=== PATIENT | male | born 1945 | race Caucasian/White ===

== ENCOUNTER 2025-04-15 09:11 | Inpatient (IN) | payer OTHER, MEDICARE ==
[~2025-04-15] VITALS: Ht 172.7 cm; Wt 60.0 kg
--- NOTE | 2025-04-15 09:21 | ELECTROCARDIOGRAPH REPORT ---
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
[2025-04-15 09:30] LABS: MEAN PLATELET VOLUME 8.5 FL (7.4-10.4); RED CELL DISTRIBUTION WIDTH 13.6 % (11.5-14.5)
[2025-04-15 09:44] LABS: CREATININE 2.39 MG/DL (0.60-1.10); TOTAL CARBON DIOXIDE 21.3 MMOL/L (24-32); eCRCL 22 ML/MIN; eGFR 27 ML/MIN
--- NOTE | 2025-04-15 09:50 | RADIOLOGY REPORT ---
CHEST RADIOGRAPH Indication: CP Technique: Single frontal view of the chest was obtained COMPARISON: None FINDINGS: Lines and Tubes: None Lungs: Right upper lobe pneumonia Pleura: No effusion. No pneumothorax. Cardiomediastinal contours: Unremarkable Bones: Unremarkable IMPRESSION: Right upper lobe pneumonia
[2025-04-15 09:52] LABS: PRO BRAIN NATRIURETIC PEPTIDE 2750 PG/ML (0-450)
[2025-04-15] MEDS: normal saline 1000ml 1,000 ML IV ONE ×2 (10:31→12:16)
[2025-04-15 10:44] LABS: BANDS% (MANUAL) 9.0 % (0-10); LYMPHOCYTES % (MANUAL) 2.0 % (21-51); METAMYLEOCYTES% (MANUAL) 1.0 % (0-0); MONOCYTES % (MANUAL) 5.0 % (2-12); NEUTROPHILS % (MANUAL) 83.0 % (42-75); PLATELET ESTIMATE NORMAL
--- NOTE | 2025-04-15 11:02 | Physician Documentation ---
History of Present Illness ~ Chief Complaint: Chest Pain Stated Complaint: LOW BLOOD PRESSURE Time Seen by MD: 09:35 Primary Medical Doctor: MATTHEW TUBBS This is a 79-year-old gentleman with a known history of hypothyroidism and hypotension who presents for evaluation of chest pain, shortness a breath, and low blood pressure this morning. It all started out with him taking his usual lisinopril, and shortly afterwards noticing that he is seeing spots. He took his blood pressure and noted it to be markedly hypotensive. He came to the hospital for further evaluation. No palliating or aggravating factors for low blood pressure. He has been taking his medication as prescribed. He also reports bilateral chest pain, worse with a respiration of the right side that has been present for the last couple of days without any fever or chills. Does report productive cough with a clear sputum that eventually turn yellow on the brown. He does report shortness a breath for the last couple of days. No palliating or aggravating factors for chest pain. Never had a cardiac workup. Denies any history of ACS or congestive heart failure. Quit smoking four days ago. Denies drug use or alcohol use. Medication Reconciliation Allergies: Coded Allergies: No Known Allergies (Unverified , 12/18/11) Past Medical History Past Surgical History: noncontributory Alcohol Use: Heavy Drug Use: none Review of Systems ROS 10 point review of systems was performed and unless noted above in HPI is negative for acute process/complaint. Physical Exam Vital Signs: Temperature: 98.0, Heart Rate: 81, Respiratory Rate: 18, BP: 73/43, Pulse Oximetry: 97, Weight: 60.000 Oxygen Flow Rate: 0 Physical Exam GENERAL: Awake, alert, oriented, GCS 15, no apparent distress, non-toxic appearing, answers questions, follows commands appropriately. HEENT: Atraumatic, normocephalic, pupils equal, extraocular muscles intact, sclerae anicteric, mucus membranes moist, oropharynx is clear, no stridor. NECK: supple, full active range of motion, trachea midline, no thyromegaly, no lymphadenopathy, no JVD. CARDIOVASCULAR: regular rate/rhythm, no murmurs/gallops/rubs, Pulses are 2+ in all extremities and symmetric. Capillary refill less than 2 seconds. PULMONARY: Nonlabored, good air movement ,no respiratory distress, speaking in full sentences, no wheezing, right-sided ronchi, no rales, no accessory muscle use. GASTROINTESTINAL: Soft, non-tender, non-distended, normal active bowel sounds, no organomegaly, no pulsatile masses, no CVA tenderness. NEUROLOGIC: Lucid with normal mental status. Normal facial symmetry. Moves all extremities symmetrically and with purpose. No truncal ataxia. Speech is fluid without evidence of dysarthria or aphasia, no focal deficits appreciated. MUSCULOSKELETAL: There is full range of motion of all extremities. There is no joint pain or joint swelling or joint erythema. There is no muscle pain or tenderness or swelling. EXTREMITIES: warm, well-perfused, no cyanosis, no clubbing, no edema, no acute deformities. Skin: warm, dry, no rashes or lesions, no jaundice, no petechiae orpurpura. No ecchymosis. PSYCHIATRIC: Normal affect, normal insight, normal concentration. Focused exam: [] Progress Results/Orders Results/Orders Orders - DION SHAH DO Chest,Single View (04/15/25 09:14) Monitor (04/15/25 09:14) Saline Lock (04/15/25 09:14) Oxygen (04/15/25 09:14) Hs Troponin I W Calculations (04/15/25 11:14) Hs Troponin I W Calculations (04/15/25 12:14) Normal Saline 1000ml (0.9% Sodium Chlori (04/15/25 10:30) Completed Orders - DION SHAH DO Chest,Single View (04/15/25 09:14) Cbc/Diff (04/15/25 09:14) PBNP (04/15/25 09:14) Electrocardiogram (04/15/25 09:14) Hs Troponin I W Calculations (04/15/25 09:14) CMP (04/15/25 09:14) Man Diff (04/15/25 09:19) Medications Received in ER Medications (Trade) Dose Ordered Sig/Fermín Route PRN Reason Start Time Stop Time Status Last Admin Dose Admin Sodium Chloride 1,000 ml @ 1,000 mls/hr ONCE ONCE IV 04/15/25 10:30 04/15/25 11:29 04/15/25 10:31 1,000 MLS/HR Vital Signs 04/15/25 04/15/25 04/15/25 09:21 09:56 10:20 Temp 98.0 Pulse 89 81 Resp 18 18 B/P (MAP) 102/50 73/43 (53) Pulse Ox 97 97 O2 Flow Rate 0 Laboratory Tests Test 04/15/25 09:19 White Blood Count 14.9 H Red Blood Count 4.02 L Hemoglobin 13.3 L Hematocrit 39.3 L Mean Corpuscular Volume 97.8 Mean Corpuscular Hemoglobin 33.1 H Mean Corpuscular Hemoglobin Concent 33.9 Red Cell Distribution Width 13.6 Platelet Count 156 Mean Platelet Volume 8.5 Neutrophils (%) (Auto) 91.1 H Lymphocytes (%) (Auto) 3.8 L Monocytes (%) (Auto) 4.8 Eosinophils (%) (Auto) 0.1 Basophils (%) (Auto) 0.2 Neutrophils # (Auto) 13.6 H Lymphocytes # (Auto) 0.6 L Monocytes # (Auto) 0.7 Eosinophils # (Auto) 0.0 Basophils # (Auto) 0.0 CBC Comment Differential Total Cells Counted 100 Neutrophils % (Manual) 83.0 H Band Neutrophils % 9.0 Lymphocytes % (Manual) 2.0 L Monocytes % (Manual) 5.0 Metamyelocytes % 1.0 H Platelet Estimate Normal Red Blood Cell Morphology Perf Basophilic Stippling Macrocytosis 1+ Sodium Level 133 L Potassium Level 4.3 Chloride Level 98 L Carbon Dioxide Level 21.3 L Anion Gap 14 Blood Urea Nitrogen 48 H Creatinine 2.39 H Estimated GFR/1.73 m2 27 BUN/Creatinine Ratio 20.1 H Glucose Level 117 H Calcium Level 9.4 Total Bilirubin 0.9 Aspartate Amino Transf (AST/SGOT) 13 Alanine Aminotransferase (ALT/SGPT) 27 Alkaline Phosphatase 69 Troponin I High Sensitivity 4 Pro-B-Type Natriuretic Peptide 2750 H Total Protein 7.6 Albumin 3.0 L Globulin 4.6 H Albumin/Globulin Ratio 0.7 L Chemistry Comments Medical Decision Making Findings Facility Status: ED Holds, [facility] process The plan was discussed with the patient, who demonstrates clear understanding of the plan and is in agreement with the plan unless otherwise noted in the chart. All questions have been answered, all concerns were addressed unless otherwise documented. I was available throughout their ED stay for frequent reassessment and questions. Differential Diagnoses (considered and possible or likely): [Differential diagnosis considered includes chest wall pain, pleurisy, pneumonia, pulmonary embolus, GERD, esophagitis, gastritis, anxiety, stress reaction, costochondritis, acute coronary syndrome, aortic dissection, pericarditis, myocarditis, or pneumothorax.] ??Differential Diagnoses (considered and unlikely, not requiring evaluation currently): [Aortic/great vessels dissection was considered but it is unlikely based on absence of ripping, tearing, migratory chest pain, absence of syncope or focal neurologic deficits, physical examination indicating equal and symmetric pulses.] MDM Data [facility] see [facility] for the following: Independent Historians and external Records Review. Historian: [Patient] Independent Historians: ?[] Medication Management: [Reviewed medication list] Social History and determinants: [Reviewed] Please see the body of the note for the following: Any independent interpretations of ECG, imaging studies. All vitals signs/haemodynamics, ordered tests were independently reviewed and interpreted by myself. Nursing triage complaint and vitals reviewed, additional nursing notes were reviewed as available and I agree unless otherwise noted or documented in contradiction in the chart Vital Signs: Independently reviewed Labs: Independently interpreted Imaging: Independently interpreted Old Medical Records: Independently reviewed, see [facility] for relevant summary and information Pulse Oximetry: [90% on room air] interpreted as [borderline hypoxia] by me [Toll Bridge Operator: [Regular Rate, Regular rhythm, no ectopy, NSR] reviewed and interpreted by me] Additionally notably showing: [The gentleman has transient episode of hypotension responsive to fluid. Borderline hypoxia noted. CBC shows leukocytosis with a 90% neutrophilic predominance. Chest x-ray shows right- sided pneumonia. BNP is also elevated concerning for new onset congestive heart failure. Metabolic panel notable for MARGARITA] Tests considered but not ordered include: [Advanced imaging of the chest, echo, and stress test can be done on an inpatient basis] Social Determinants of Health Impact: Patient was evaluated in [facility], or [facility] [place] access to healthcare due to below par ratio of patient to medical providers. [] Comorbid Conditions Impacting Present Evaluation and Care/Treatment: [Hypotension, hypothyroidism] Management Discussions with other Healthcare Providers: [Hospitalist] Treatment and Disposition Medication Management (Given or considered): [Gentle fluid resuscitation, antibiotics]. See EMR for details Consideration for Hospitalization/Escalation/Deescalation of Care: Admission for observation has been considered, and appears to be necessary for further management of his transient hypotension, acute kidney injury, community-acquired pneumonia, and concern for new onset CHF ?ED Course:?[Responded to fluids, hypotension resolved.] ?Shared decision making:?[] Code status:?FULL Please see the full Electronic Medical Record for full details of nursing documentation, medications list, other records of complete past medical history and conditions, vital signs, laboratory studies, and any radiologic study interpretations by radiologists. Portions of this note were completed using Visual Unity dictation software and as a result there may exist minor errors in spelling. I have reviewed elements of past family and social history and agree as included in note. Departure Disposition: 09 ADMITTED INPATIENT Impression: Primary Impression: Transient hypotension Additional Impressions: Acute kidney injury New onset of congestive heart failure Acute chest pain Community acquired pneumonia Bandemia Sepsis Acute hypoxic respiratory failure Condition: Guarded Referrals: NO PRIMARY CARE PROVIDER (PCP) Signature Scribe Signature: No scribe Attestation: This note accurately reflects clinical decisions, work performed by myself, DO PABLO Damon NICHOLAS M DO Apr 15, 2025 11:02
[2025-04-15] MEDS: azithromycin/NS 500mg/250ml 250 ML IV ONE (11:15)
[2025-04-15] MEDS ORDERED: magnesium hydroxide 30ml (MOM) UD suspension PO PRN (11:25)
[2025-04-15] MEDS ORDERED: potassium Cl 20 mEq SR tablet PO PRN ×2 (11:25)
[2025-04-15] MEDS ORDERED: magnesium sulf-water 2g/50mL 50 ML IV PRN (11:25)
[2025-04-15] MEDS: PERFLUTREN PROTEIN-A MICROSPHR (Optison) 0.22 MG/ML 3ML VIAL IV ONE (11:25)
[2025-04-15] MEDS ORDERED: magnesium sulf-water 4G/100mL 100 ML IV PRN (11:25)
[2025-04-15] MEDS ORDERED: ondansetron/PF 4mg/2ml inj IV PRN (11:25)
[2025-04-15] MEDS ORDERED: mag hydrox/Alum hydrox/simeth 30ml oral suspension PO PRN (11:25)
[2025-04-15] MEDS ORDERED: potassium Cl 40MEQ/1/2NS 520ml 520 ML IV PRN (11:25)
[2025-04-15] MEDS ORDERED: albuterol 2.5 MG/3 ML nebule NEB PRN ×2 (11:30→16:55)
[2025-04-15] MEDS: CefTRIAXone 2gm/NS 100ml IVPB 50 ML IV ONE (12:04)
[2025-04-15] MEDS: normal saline 1000ml 1,000 ML IV SCH (12:40)
[2025-04-15] MEDS: midodrine 5mg tablet PO ONE (12:40)
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
[2025-04-15] MEDS ORDERED: haloperidol lactate 5mg/ml inj IM PRN (12:50)
[2025-04-15] MEDS: normal saline 1000ml 1,000 ML IV STA (12:52)
[2025-04-15 14:05] LABS: CHOL/HDL RATIO 3.1 (0.00-4.99); LDL CHOLESTEROL 29 MG/DL (50-100)
[2025-04-15 14:19] VITALS: PULSE 76; RESP 16; O2SAT 96
--- NOTE | 2025-04-15 14:48 | RADIOLOGY REPORT ---
Procedure: CT CT CHEST Reason for study/Clinical History: pna Comparison Study: None TECHNIQUE: Multidetector CT of the chest was performed from the lung apices to the upper abdomen with out the use of intravenous contract. Axial, coronal and sagittal multiplanar reformats were performed . Radiation Dose Information: CT Dose: CTDI volume is 10.4 mGy. Dose-length product is 412.8 mGy*cm The dose indicators for CT are the volume Computed Tomography (CT) Dose Index (CTDIvol) and the Dose Length Product (DLP), and are measured in units of mGy and mGy-cm, respectively. These indicators are not patient dose, but values generated from the CT scanner acquisition factors. The report includes radiation exposure data for exposures received during this examination. FINDINGS: Lower neck: Unremarkable. Lungs: Moderate emphysema. Biapical scarring, [id number]. Airspace consolidation in the right upper lobe and right middle lobe. Heart/Vascular Structures: Cardiomegaly. Coronary artery calcifications. Vascular calcifications of t he aorta. Lymph Nodes: No adenopathy Pleura: No pleural effusion or significant pneumothorax. Musculoskeletal: No acute osseous abnormality. Soft tissues: Normal. Upper abdomen: Limited portions of the upper abdomen are unremarkable. IMPRESSION: Airspace consolidation in the right upper lobe and right middle lobe superimposed on moderate emphyse ma.
[2025-04-15 15:00] VITALS: BP 103/54; PULSE 61; RESP 16; TEMP 97.3; O2SAT 95
[2025-04-15] MEDS: midodrine 5mg tablet PO SCH (16:10)
[2025-04-15 18:00] VITALS: BP 133/82; PULSE 91; RESP 14; TEMP 98.2; O2SAT 95
[2025-04-15] MEDS: docusate sod 100mg capsule PO SCH (19:43)
[2025-04-15] MEDS: heparin, porcine 5000 units/ml vial SQ SCH (19:44)
[2025-04-15 20:00] VITALS: RESP 18; O2SAT 97
[2025-04-15] MEDS: K and/or MAG REPLACEMENT MC SCH (20:00)
[2025-04-15 22:00] VITALS: BP 120/54; PULSE 58; RESP 11; TEMP 98; O2SAT 99
[2025-04-16] VITALS (10 sets, daily range): BP systolic 81–128; BP diastolic 50–106; PULSE 58–86; RESP 12–26; TEMP 97–98.2; O2SAT 92–100
[2025-04-16 06:14] LABS: MEAN PLATELET VOLUME 9.0 FL (7.4-10.4); RED CELL DISTRIBUTION WIDTH 13.4 % (11.5-14.5)
[2025-04-16 06:31] LABS: CREATININE 1.80 MG/DL (0.60-1.10); TOTAL CARBON DIOXIDE 18.7 MMOL/L (24-32); eCRCL 29 ML/MIN; eGFR 37 ML/MIN
[2025-04-16] MEDS: azithromycin/NS 500mg/250ml 250 ML IV SCH (07:55)
[2025-04-16] MEDS: CefTRIAXone 2gm/D5W 50ml BAG 50 ML IV SCH (07:55)
[2025-04-16] MEDS: normal saline 1000ml 1,000 ML IV ONE (10:15)
--- NOTE | 2025-04-16 10:18 | PROGRESS NOTE ---
Daily Progress Note Providers to CC ~ Antibiotic Timeout Antibiotic Ordered?: Yes Subjective No acute events overnight. Patient examined at bedside. No new complaints, not in acute distress. Patient denies chest pain, sob, palpitations, abdominal pain, n/v/d. Vss, tele sinus in 60s, labs notable for normalized white count and normalized lactic acid, resolving MARGARITA on IVF. 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, no focal deficits Musculoskeletal: No paraspinal muscle tenderness, no muscle spasm Skin: Warm and intact Problem\Assessment\Plan Assessment Sepsis 2/2 PNA Community-acquired pneumonia Hypotension Dehydration Hyponatremia, mild likely 2/2 ACEI use Prerenal MARGARITA 2/2 hypovolemia/vasomotor nephropathy Hx hypertension Hypothyroidism Chronic alcoholism Empyesema -reports pleuritic chest pain, wbc 15, procal 8.5, lactic acid 3.5, trops negative, HEART score 3, CXR shows pneumonia, EKG sinus 89bpm, no ST elevation/depression, CT chest shows consolidation in the right upper lobe and right middle lobe superimposed on moderate emphysema -04/16: normalized white count, normalized lactic acid, downtrending Cr Plan -fluid resuscitation, midodrine, ceftriaxone, Zithromax, mild alcohol withdrawal protocol, prn bronchodilators -follow UA, TTE, repeat lactic acid -pending med rec DVT/VTE prophylaxis: Heparin Code status: Full code Date of Service: Apr 16, 2025 Billing Provider: KELVIN CERVANTES Common Visit Codes: [id number] INP/OBS CARE(HIGH) KELVIN CERVANTES Apr 16, 2025 10:18
[2025-04-16] MEDS ORDERED: ALB0.5UD NEB (12:19)
[2025-04-16] MEDS ORDERED: LISI20TA28 PO (12:19)
[2025-04-16] MEDS ORDERED: SYN0.088T PO (12:19)
[2025-04-16 15:24] LABS: LEUKOCYTE ESTERASE ,URINE NEGATIVE (Neg); NITRITES, URINE NEGATIVE (Neg); OCCULT BLOOD,URINE SMALL (Neg)
[2025-04-16 15:29] LABS: UA COLLECTION TYPE NON-SPECIFIED
[2025-04-16 15:34] LABS: COARSE GRANULAR CAST 0-3 /LPF (NEGATIVE); SQUAMOUS EPITHELIAL CELL,UR FEW /LPF (FEW)
[2025-04-16] MEDS: lactose-reduced food (Ensure Enlive) - 237ml bottle PO SCH (18:10)
[2025-04-16] MEDS: HYDROcodone/acetaminophen 5mg/325mg tablet PO PRN (20:19)
[2025-04-17] VITALS (13 sets, daily range): BP systolic 109–145; BP diastolic 54–92; PULSE 63–83; RESP 12–24; TEMP 97.5–97.8; O2SAT 92–97
[2025-04-17 07:06] LABS: MEAN PLATELET VOLUME 9.2 FL (7.4-10.4); RED CELL DISTRIBUTION WIDTH 13.7 % (11.5-14.5)
[2025-04-17 07:18] LABS: CREATININE 1.41 MG/DL (0.60-1.10); TOTAL CARBON DIOXIDE 18.6 MMOL/L (24-32); eCRCL 37 ML/MIN; eGFR 49 ML/MIN
[2025-04-17] MEDS: HYDROcodone/acetaminophen 10/325mg tab PO PRN (10:40)
--- NOTE | 2025-04-17 14:28 | PROGRESS NOTE ---
Daily Progress Note Providers to CC ~ Antibiotic Timeout Antibiotic Ordered?: Yes Subjective No acute events overnight. Patient examined at bedside. No new complaints, not in acute distress. Patient denies chest pain, sob, palpitations, abdominal pain, n/v/d. Vss, tele sinus in 70s, labs notable for normalized white count and normalized lactic acid, resolving MARGARITA on IVF. 10/09 preliminary blood cx resulted for Strep pneumoniae, TTE 55-60%, RVSP 40mmHg without significant valvular heart disease, no emboli. Consulted ID Dr. Dyer. Objective Vital Signs Date Time Temp Pulse Resp B/P (MAP) Pulse Ox O2 Delivery O2 Flow Rate FiO2 04/17/25 11:41 75 20 94 Room Air* 0 21 04/17/25 11:00 97.5 125/67 (86) Result Diagram: 04/17/2561304/17/25613 Physical Exam General: Generalized weakness, A&Ox 3, NAD HEENT: Normocephalic, PERRLA Neck: Supple, trachea midline, no JVD Chest: Clear to auscultation bilaterally Cardiovascular: RRR, S1&S2 GI: Soft and nontender Extremities: No cyanosis/clubbing/or edema ENTRY MANAGER: CN II-XII intact, no focal deficits Musculoskeletal: No paraspinal muscle tenderness, no muscle spasm Skin: Warm and intact Problem\Assessment\Plan Assessment Sepsis 2/2 PNA Community-acquired pneumonia Bacteremia-POA Hypotension Dehydration Hyponatremia, mild likely 2/2 ACEI use Prerenal MARGARITA 2/2 hypovolemia/vasomotor nephropathy Hx hypertension Hypothyroidism Chronic alcoholism Empyesema -reports pleuritic chest pain, wbc 15, procal 8.5, lactic acid 3.5, trops negative, HEART score 3, CXR shows pneumonia, EKG sinus 89bpm, no ST elevation/depression, CT chest shows consolidation in the right upper lobe and right middle lobe superimposed on moderate emphysema -04/16: normalized white count, normalized lactic acid, downtrending Cr, TTE 55- 60%, RVSP 40mmHg without significant valvular heart disease -04/17: 10/09 preliminary blood cx resulted for Strep pneumoniae, consulted ID Dr. Dyer Plan -fluid resuscitation, midodrine, ceftriaxone, Zithromax, mild alcohol withdrawal protocol, prn bronchodilators DVT/VTE prophylaxis: Heparin Code status: Full code Date of Service: Apr 17, 2025 Billing Provider: KELVIN CERVANTES Common Visit Codes: [id number] INP/OBS CARE(HIGH) KELVIN CERVANTES Apr 17, 2025 14:28
--- NOTE | 2025-04-17 16:40 | CARDIOLOGY REPORT ---
APPROVED REPORT EXAM: Comprehensive 2D, Doppler, and color-flow Echocardiogram. Patient Location: [facility] [place] Blood Pressure: 94/53 mmHg Heart Rate: 107-120 bpm Indications Chest Pain PROBNP: 2750 Shortness of Breath NO MANAGER SCIENCE NO Previous ECHO 2D Dimensions LA Diam3.8 cm IVSd 0.9 (0.7-1.1cm) LVDd 3.8 cm PWd 0.8 (0.7-1.1cm) IVSs 1.0 (0.8-1.2cm) LVDs 2.7 (2.5-4.0cm) PWs 1.3 (0.8-1.2cm) LVOT Diameter 2.01 (1.8-2.4cm) LVEF(%) 54.4 (>50%) Ao Asc Diam.3.10 cm IVC 23.68 mmFS (%) 27.6 % SV 33.5 ml CO 3.1 L/min M-Mode Dimensions Left Atrium(MM) 3.62 (2.5-4.0cm) Aortic Root 3.13 (2.2-3.7cm) Aortic Cusp Exc 1.44 (1.5-2.0cm) MV EPSS 1.1 (<0.5cm) Aortic Valve AoV Peak Juanito. 128.5 cm/s AoV VTI 21.5 cm AO Peak GR. 6.6 mmHg AO Mean GR. 3 mmHg LVOT VTI 21.54 cm LVOT Peak Juanito. 92.0 cm/s PAPA(VTI)/BSA 3.18 cm2/m2 PAPA (VTI) 3.18 cm2 Mitral Valve MV E Velocity 71.9 cm/s MV Peak Gr. 2 mmHg MV DECEL TIME 200 ms MV A Velocity 45.8 cm/s MV PHT 80 ms E/A Ratio 1.6 MVA (PHT) 2.75 cm2 MV VMax69.8 cm/s TDI Lateral E' P. V17.30 cm/s E/Lateral E' 4.2 Tricuspid Valve TR P. Velocity 273 cm/s RAP ESTIMATE 10 mmHg TR Peak Gr. 30 mmHg RVSP 40 mmHg LEFT VENTRICLE Normal LV size and wall thickness. Overall systolic function is normal. Overall LVEF is 55-60%. RIGHT VENTRICLE Right ventricle appears mildly dilated with adequate function. Estimated PA systolic pressure of 40 m m of mercury ATRIA The left atrium size is normal. AORTIC VALVE Trileaflet AV appears mildly sclerotic without stenosis. Trace insufficiency. MITRAL VALVE Mitral valve leaflets are mildly thickened without stenosis. Trace regurgitation. TRICUSPID VALVE The tricuspid valve is normal in structure with mild regurgitation. PULMONIC VALVE The pulmonary valve is normal in structure with physiologic insufficiency. GREAT VESSELS The aortic root is normal in size. The ascending aorta is normal in size. IVC is dilated and collapse s less than 50% with inspiration. PERICARDIUM Normal pericardium. No effusion. Other Information Study Quality: Adequate Conclusion Overall LVEF is 55-60%. Normal LV size and wall thickness. Overall systolic function is normal. Right ventricle appears mildly dilated with adequate function. Estimated PA systolic pressure of 40 mm of mercury Trileaflet AV appears mildly sclerotic without stenosis. Trace insufficiency. Mitral valve leaflets are mildly thickened without stenosis. Trace regurgitation. The tricuspid valve is normal in structure with mild regurgitation. The pulmonary valve is normal in structure with physiologic insufficiency. Normal pericardium. No effusion.
--- NOTE | 2025-04-17 18:30 | RADIOLOGY REPORT ---
INDICATION: salima TECHNIQUE: Multiple real-time sonographic images of the kidneys and bladder were obtained. COMPARISON: None FINDINGS: The right kidney measures 11 cm in length, which is normal in size. There is normal echogenicity of the right kidney. No hydronephrosis. The left kidney measures 11.5 cm in length, which is normal in size. There is normal echogenicity of the left kidney. No hydronephrosis. Urinary bladder is unremarkable. Urinary bladder volume of 298 cc IMPRESSION: Unremarkable sonographic study of the kidneys and urinary bladder. Urinary bladder volume of 298 cc.
[2025-04-17] MEDS: ipratropium/albuterol 3ml nebule NEB PRN (22:52)
[2025-04-18] VITALS (7 sets, daily range): BP systolic 100–119; BP diastolic 54–68; PULSE 69–81; RESP 17–22; TEMP 97.3–98.6; O2SAT 93–96
[2025-04-18 06:22] LABS: MEAN PLATELET VOLUME 8.6 FL (7.4-10.4); RED CELL DISTRIBUTION WIDTH 14.5 % (11.5-14.5)
[2025-04-18 06:51] LABS: CREATININE 1.38 MG/DL (0.60-1.10); TOTAL CARBON DIOXIDE 18.1 MMOL/L (24-32); eCRCL 38 ML/MIN; eGFR 50 ML/MIN
--- NOTE | 2025-04-18 13:58 | DISCHARGE SUMMARY ---
Discharge Summary Providers to CC ~ Discharge Summary Admission Diagnosis: CAP, sepsis, hypotension Hospital Course DATE OF ADMISSION: 04/15/25 DATE OF DISCHARGE: 04/18/25 Discharge Diagnosis\Comment: Sepsis 2/2 PNA Community-acquired pneumonia, covering for Gram-positive and Gram-negative Bacteremia-POA Hypotension Dehydration Hyponatremia, mild likely 2/2 ACEI use Prerenal MARGARITA 2/2 hypovolemia/vasomotor nephropathy Hx hypertension Hypothyroidism Chronic alcoholism Empyesema Generalized weakness Operations\Procedures: None Consultants: Infectious Disease Ashutosh Simons Complications: None Condition on DC: Stable for transfer Discharge Summary: History of Present Illness Rico Izaguirre is a 79-year-old male with past medical history of hypertension and hypothyroidism who presented to the ED with chief complaint of low blood pre ssure with the lowest systolic in 50s x 2 days and cough x 2 weeks. Patient also reports intermittent chest pain that comes with deep breathing. Patient states he had been taking lisinopril daily. Patient denies prior IA/CAD, CVA, cardiac arrhythmia, CKD, DVT/PE, or GIB. Patient denies current chest pain, denies loss of consciousness, palpitations, shortness of breath, abdominal pain, n/v/d, fever, chills, dysuria. Initial diagnostic findings were notable for chest x-ray revealing pneumonia and profound hypotension which improved after fluid resuscitation. Patient is to be admitted for further workups and treatment. Hospital Course Diagnostic findings were notable for findings of sepsis including leukocytosis and profound hypotension, elevated lactic acid, elevated procal, renal insufficiency, chest x-ray and CT chest revealing right upper lobe and right middle lobe pneumonia and moderate emphysema. Patient was treated with intravenous bolus fluid resuscitation followed by continuous fluids, empirical antibiotics, midodrine which patient responded well to. One out of two blood culture came back positive for Streptococcus pneumoniae. TTE revealed normal overall systolic function with LVEF of 55-60%, RVSP 40mmHg, without significant valvular disease or evidence of vegetation and renal ultrasound was unremarkable. Case was consulted with ID Dr. Dyer who agreed with current treatment and to to follow the patient to rehab. Patient did not experience further complications throughout the entire hospital stay. Patient was seen and examined on the day of discharge. On day of discharge, vss and labs notable for resolving acute kidney injury and normalized lactic acid and leukocytosis. All labs, diagnostic workups, discharge plan discussed with patient in details during visit before discharge. All questions and concerns answered to the best of my professional knowledge. Patient is to be discharged to rehab on ceftriaxone for continued management. Physical Exam General: Generalized weakness, A&Ox 3, NAD HEENT: Normocephalic, PERRLA Neck: Supple, trachea midline, no JVD Chest: Clear to auscultation bilaterally Cardiovascular: RRR, S1&S2 GI: Soft and nontender Extremities: No cyanosis/clubbing/or edema WINDER HELPER: CN II-XII intact, no focal deficits Musculoskeletal: No paraspinal muscle tenderness, no muscle spasm Skin: Warm and intact *Problems/Diagnosis: (1) Sepsis Status: Acute (2) Community acquired pneumonia Status: Acute Total Time Spent on D/C: > 30 Minutes Date of Service: Apr 18, 2025 Billing Provider: KELVIN CERVANTES Common Visit Codes: 77862-BXP/OBS DISCH DAY >30min KELVIN CERVANTES Apr 18, 2025 13:54
--- NOTE | 2025-04-18 23:47 | CONSULTATION ---
DATE OF CONSULTATION: 04/18/2025 DICTATING PHYSICIAN: Ashutosh Dyer MD REASON FOR CONSULTATION: I am seeing the patient at the request of Oz Delarosa for evaluation of pneumococcal sepsis. HISTORY OF PRESENT ILLNESS: The patient is a 79-year-old male with nicotine dependence and COPD, who was admitted to this facility on 04/15/2025 with worsening shortness of breath and cough. He also demonstrated hypotension. He has not had any significant fever and his white blood cell count was up around 15,000 when he came in. Imaging did show evidence of a right upper lobe pneumonia. He was admitted to the Hospitalist Service. He has been receiving ceftriaxone and azithromycin. It does not appear that he is receiving any corticosteroids. His white blood cell count has normalized. He is utilizing 2 liters of supplemental oxygen. He still has quite a bit of dyspnea with exertion. He was smoking up until this hospitalization. PAST MEDICAL HISTORY: * COPD with nicotine dependence. * Hypertension. * Hypothyroidism. ALLERGIES: None. MEDICATIONS: * Ceftriaxone 2 g daily. * Azithromycin was stopped yesterday. * Thiamine. * Folate. * Colace. * Subcutaneous heparin. * Midodrine. FAMILY HISTORY: Noncontributory. SOCIAL HISTORY: He lives in [place]. He is . He was smoking up until this hospitalization. He does drink beer. PHYSICAL EXAMINATION: VITAL SIGNS: He is afebrile with stable vital signs, currently on 2 liters. GENERAL: He is a pleasant elderly male sitting up in bed, looking a little bit wiped out after coming back to bed from the bathroom. He is in no acute distress. HEENT: Sclerae anicteric. Mouth is clear. NECK: Supple. LUNGS: Clear to auscultation bilaterally. HEART: Regular rate and rhythm. ABDOMEN: Soft, nontender, and nondistended. EXTREMITIES: No edema. LABORATORY DATA: White blood cell count is 10,800, hemoglobin 10.7, platelets 144,000. Creatinine 1.4. Procalcitonin was 8.5 when he came in. Blood cultures are positive for pneumococcus that is fully susceptible. Chest x-ray and CT scan were reviewed. He does demonstrate consolidation at the right upper lobe and right middle lobe. There is evidence of emphysema. Echocardiogram shows a normal ejection fraction. IMPRESSION: * Pneumococcal sepsis due to pneumonia. * Right upper lobe and right middle lobe pneumonia. * Chronic obstructive pulmonary disease exacerbation with nicotine dependence. PLAN: He can certainly continue with ceftriaxone 2 g daily. It is unclear to me if he is going to rehab or home in the coming days. He should be able to transition over to levofloxacin 500 mg daily when he is ready for discharge. I would complete a full two weeks of therapy from the time that he came into the hospital. I am going to put him on some prednisone as he still seems to be struggling and I suspect COPD is playing a role. Hopefully, we can get him off Midodrine. He has been strongly encouraged to quit smoking. I will continue to follow him while he is here and I thank you for allowing me to participate in his care. Ashutosh Dyer MD TID: [id number] RECEIPT: [id number] SINDI
== END 2025-04-18 18:30 | DRG 871 ==
LOC: ER 09:11 → ED HOLD 11:27 → PCU 3S 14:44
PROVIDERS: ADMIT Nurse Practitioner Family; ATTEND Nurse Practitioner Family
DX: A40.3 Sepsis due to Streptococcus pneumoniae (principal); J18.9 Pneumonia, unspecified organism; J96.01 Acute respiratory failure with hypoxia; N17.0 Acute kidney failure with tubular necrosis; E87.1 Hypo-osmolality and hyponatremia; J44.1 Chronic obstructive pulmonary disease with (acute) exacerbation; E87.20 Acidosis, unspecified; J44.0 Chronic obstructive pulmonary disease with (acute) lower respiratory infection; E03.9 Hypothyroidism, unspecified; E86.0 Dehydration; E86.1 Hypovolemia; F10.20 Alcohol dependence, uncomplicated; I11.0 Hypertensive heart disease with heart failure; I50.9 Heart failure, unspecified; J43.9 Emphysema, unspecified; F17.200 Nicotine dependence, unspecified, uncomplicated
CPT/HCPCS: 36415; 71045; 71250; 76770; 80053; 80061; 81001; 83036; 83605; 83735; 83880; 84145; 84439; 84443; 84484; 85007; 85025; 85651; 86140; 87040; 87077; 87081; 87186; 93005; 93306; 94640; 94664; 94760; 96361; 96365; 97116; 97161; 97530; 99285; A4615; G0378; J0456; J0696; J1644; J7030